=== PATIENT | male | born 1995 | race Caucasian/White ===

== ENCOUNTER 2021-05-29 12:42 | Emergency (ER) | payer OTHER ==
[~2021-05-29] VITALS: Ht 180.3 cm; Wt 117.9 kg
[~2021-05-29 12:42] MED LIST: DICLOFENAC SODI50 MG PO
[2021-05-29] MEDS ORDERED: METFORMIN HCL500 MG (12:54)
[2021-05-29] MEDS ORDERED: DICLOFENAC POTA50 MG PO (16:49)
[2021-05-29] MEDS ORDERED: ORPHENADRINE C100 MG PO (16:49)
== END 2021-05-29 18:09 ==
LOC: ER 12:42
DX: S33.5XXA Sprain of ligaments of lumbar spine, initial encounter (principal); X50.0XXA Overexertion from strenuous movement or load, initial encounter; Y93.89 Activity, other specified; Y92.098 Other place in other non-institutional residence as the place of occurrence of the external cause; Y99.8 Other external cause status